=== PATIENT | female | born 1960 | race Caucasian/White ===

== ENCOUNTER 2018-05-10 10:36 | Emergency (ER) | payer OTHER ==
[~2018-05-10] VITALS: Ht 165.1 cm; Wt 88.5 kg
[2018-05-10 11:15] LABS: ABSOLUTE BASOPHIL COUNT 0 /CUMM (0.0-0.2); ABSOLUTE EOSINOPHIL COUNT 0.2 /CUMM (0.0-0.7); ABSOLUTE LYMPH COUNT 1.7 /CUMM (1.2-3.4); ABSOLUTE MONOCYTE COUNT 0.6 /CUMM (0.10-0.60); BASOPHIL % 0.7 % (0.0-2.0); EOSINOPHIL % 2.8 % (0-5); GRANULOCYTE % 61.6 % (42.2-75.2); HEMATOCRIT 44.1 % (37-47); MEAN CORPUSCULAR HGB CONC 35.1 G/DL (33.0-37.0); MEAN PLATELET VOLUME 7.5 FL (7.4-10.4); PLATELET COUNT 240 /CUMM (130-400); RBC DISTRIBUTION WIDTH 12.4 % (11.5-14.5); RED BLOOD CELL CT 4.69 /CUMM (4.20-5.40); WHITE BLOOD CELL COUNT 6.5 /CUMM (4.8-10.8)
[2018-05-10] MEDS ORDERED: COZAAR25 M1 PO (14:24)
[2018-05-10] MEDS ORDERED: ZOLOFT25 M1 PO (14:24)
[2018-05-10] MEDS ORDERED: HYDROCHLOROTH12.5 M2 PO (14:24)
[2018-05-10] MEDS ORDERED: XANAX0.25 M1 PO (14:25)
--- NOTE | 2018-05-10 14:40 | ED CARDIAC/CP/PALPITATIONS ---
History of Present Illness General Chief Complaint: Palpitations Stated Complaint: SOB PALPITATIONS Source: patient Exam Limitations: no limitations Vital Signs & Intake/Output Vital Signs & Intake/Output ED Intake and Output 05/11 0000 05/10 1200 Intake Total 0 Output Total Balance 0 Intake, Oral 0 Patient 195 lb Weight Weight Reported by Patient Measurement Method Allergies Coded Allergies: Penicillins (Severe, RASH 05/10/18) Triage Note: 57 YO FEMALE TO RTIAGE FOR EVAL OF R SIDED UPPER BACK PAIN WITH +SOB AND PALPITATIONS. STATES EVERY MORNING WHEN SHE WAKES UP SHE FEELS HER HEART RACING. HR 90s AT THIS TIME. Triage Nurses Notes Reviewed? yes HPI: Patient is a 57-year-old female with a past medical history of hypertension who is presenting to the emergency department with complaints of nausea, heart fluttering and difficulty breathing since this weekend. Patient states she felt her heart fluttering after waking up on Wednesday morning. Patient states she had a previous drain last night and woke up with the feeling of her heart fluttering and continue lying in bed. Patient states palpitations resolved on their own about 30 minutes later. Patient also states she has been experiencing some shortness of breath, secondary to pain on the left side of her back in the midthoracic area when she takes a deep breath. Patient states she noticed the shortness of breath over the weekend, as she was busy cleaning the house and her closet. Patient states she has a history of allergies and seasonal asthma for which she does not take an inhaler, inconsistent use of allergy medication. Patient states she had palpitations approximately 10 years ago for which she had a complete cardiology workup, was placed on Holter monitor, EKG in hosptial and everything was negative at that time. 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 Denies feeling lightheaded, dizziness, loss consciousness, cough. (Hubert HUANG,Fawn) Reconcile Medications Alprazolam (Xanax) 0.25 MG TABLET 1 TAB PO BIDP PRN ANXIETY (Reported) Diclofenac Potassium 50 MG TABLET 1 TAB PO TID PRN PAIN Hydrochlorothiazide 12.5 MG TABLET 1 TAB PO DAILY WATER RETENTION (Reported) Losartan Potassium (Cozaar) 25 MG TABLET 1 TAB PO DAILY HEART (Reported) Sertraline HCl (Zoloft) 25 MG TABLET 1 TAB PO DAILY MENTAL HEALTH (Reported) (Finesse HUANG,Moe) Past History Travel History Traveled to [place] past 21 day No Medical History Any Pertinent Medical History? 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 No (Fawn Gaspar MD) Review of Systems Review of Systems Constitutional: Reports: see HPI. (Hubert HUANG,Fawn) Physical Exam Physical Exam General Appearance: well developed/nourished, no apparent distress Respiratory: normal breath sounds, lungs clear Cardiovascular: regular rate/rhythm Peripheral Pulses: 4+ dorsalis pedis (R), 4+ dorsalis pedis (L) Gastrointestinal: normal bowel sounds, soft, non-tender Back: normal inspection, no vertebral tenderness Extremities: normal inspection, normal capillary refill, no edema Core Measures ACS in differential dx? No CVA/TIA Diagnosis No Sepsis Present: No Sepsis Focused Exam Completed? No (Hubert HUANG,Fawn) Progress Differential Diagnosis: costochondritis, musculoskeletal pain, pulmonary embolism Plan of Care: Orders Procedure Date/time Status EKG 05/10 1603 Active TROPONIN LEVEL 05/10 1459 Complete Add-on Test (ER Only) 05/10 1427 Active D-DIMER 05/10 1106 Complete Telemetry/Instructional Media Services Technician 05/10 1047 Active TSH REFLEX 05/10 1047 Complete TROPONIN LEVEL 05/10 1047 Complete MAGNESIUM 05/10 1047 Complete COMPREHENSIVE METABOLIC PANEL 05/10 1047 Complete CBC WITHOUT DIFFERENTIAL 05/10 1047 Complete EKG 05/10 1040 Active Laboratory Tests 05/10/18 1505: Troponin I < 0.01 05/10/18 1106: Anion Gap 7, Estimated GFR > 60, BUN/Creatinine Ratio 18.9, Glucose 100 H, Calcium 9.8, Magnesium 2.1, Total Bilirubin 0.3, AST 41 H, ALT 54 H, Alkaline Phosphatase 56, Troponin I < 0.01, Total Protein 7.2, Albumin 4.6, Globulin 2.6, Albumin/Globulin Ratio 1.8, TSH &T3 &Free T4 Intrp 2.020, D-Dimer High Sensitivty < 200, CBC w Diff NO MAN DIFF REQ, RBC 4.69, MCV 94.0, MCH 33.0 H, MCHC 35.1, RDW 12.4, MPV 7.5, Gran % 61.6, Lymphocytes % 26.4, Monocytes % 8.5, Eosinophils % 2.8, Basophils % 0.7, Absolute Granulocytes 4.0, Absolute Lymphocytes 1.7, Absolute Monocytes 0.6, Absolute Eosinophils 0.2, Absolute Basophils 0 Initial ED EKG: normal axis, normal intervals, normal p-waves, normal QRS complex, normal sinus rhythm (Fawn Gaspar MD) Diagnostic Imaging: Discussed w/RAD: Radiology Read. 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 05/10/2018 4:41:32 PM I have updated Beronica on test results. She states she is having a pleuritic type left flank pain so I will prescribe an anti- inflammatory. The chest x-ray is unrevealing so the cause of the pain is somewhat unclear at this time. She states it occurs when she takes a deep breath I suspect a musculoskeletal pain or perhaps pleurisy. I doubt pulmonary embolism given her low wells score and negative d-dimer. (Arely HUANG,Thai Quintanilla) Departure Departure Condition: Stable Referrals: Carin Boyle DO (PCP/Family) Micha Mueller MD Departure Forms: Customer Survey General Discharge Information (Fawn Gaspar MD) Departure Disposition: HOME OR SELF CARE Clinical Impression Primary Impression: Palpitations Secondary Impressions: Left flank pain Additional Instructions: Diclofenac as needed for your left back pain. Follow-up with Carin Boyle DO this week for reevaluation. Return if any concerns or sudden worsening. Please note that there might be incidental findings in your evaluation that are unrelated to the current emergency department visit. Please notify your primary care doctor about this emergency department visit in order to obtain and review all of the testing performed so that these incidental findings can be monitored as needed. If you had an x-ray performed, please understand that some fractures or other findings may not be seen on the initial set of x-rays. If your symptoms persist you might need a repeat set of x-rays to check for such a fracture. If you had a laceration evaluated, please understand that foreign bodies such as glass or wood may not be visible to the naked eye or on plain x-rays. If the wound becomes red, swollen, increasingly more painful or if there is any drainage from the wound, please have it reevaluated by a physician for the possibility of a retained foreign body. If you're unable to follow up as outlined in the discharge instructions please return to the emergency department. Thank you for choosing the [facility] Emergency Department for your care. It was a pleasure to serve you today. Thai Mcgee M.D. [facility] Prescriptions: Current Visit Scripts Diclofenac Potassium 1 TAB PO TID PRN PAIN #30 TAB (Arely HUANG,Thai Quintanilla) Critical Care Note Critical Care Note Critical Care Time: non-applicable (Arely HUANG,Thai Quintanilla)
--- NOTE | 2018-05-10 15:11 | RADIOLOGY REPORT ---
EXAMINATION: XR CHEST CLINICAL INFORMATION: Shortness of breath with deep inspiration, pain COMPARISON: None TECHNIQUE: 2 views of the chest were obtained. FINDINGS: Lungs are clear. No pulmonary vascular congestion. There is no pleural effusion. The heart size is normal. The cardiac and mediastinal contours are normal. There are multilevel degenerative changes of dorsal spine. IMPRESSION: Unremarkable examination.
[2018-05-10 16:32] VITALS: BP 130/84
[2018-05-10] MEDS ORDERED: DICLOFENAC POTA50 M1 PO (16:44)
== END 2018-05-10 16:53 ==
LOC: ERH 10:36
PROVIDERS: Physician Assistant Medical
DX: R00.2 Palpitations (principal); R10.32 Left lower quadrant pain; I10 Essential (primary) hypertension; F32.9 Major depressive disorder, single episode, unspecified
CPT/HCPCS: 71046; 93005; 93010